=== PATIENT | female | born 1975 | race African-American/Black ===

== ENCOUNTER 2019-07-19 23:11 | Emergency (ER) | payer MEDICAID ==
[~2019-07-19] VITALS: Ht 175.3 cm; Wt 115.0 kg
[2019-07-19] MEDS ORDERED: SODIUM CHLORIDE 0.9% 1,000 ML IV ONE (23:18)
[2019-07-19] MEDS ORDERED: LORAZEPAM 2MG/ML CPJ IV STA (23:18)
[2019-07-19] MEDS ORDERED: LORAZEPAM 2MG/ML CPJ ONE ×2 (23:19→23:27)
[2019-07-19] MEDS ORDERED: NALOXONE HCL 1 MG/ML 2ML VIAL ONE ×3 (23:21→23:31)
[2019-07-19] MEDS ORDERED: NALOXONE HCL 1 MG/ML 2ML VIAL IV ONE ×2 (23:30→23:45)
[2019-07-19] MEDS ORDERED: NALOXONE HCL 0.4 MG/ML 1ML VIAL IV PRN (23:30)
[2019-07-19] MEDS ORDERED: LORAZEPAM 2MG/ML CPJ IV ONE (23:45)
[2019-07-19 23:52] LABS: BASOPHILS % 0.2 % (0.0-2.0); EOSINOPHILS % 0.4 % (0.0-5.0); HEMATOCRIT. 37.1 % (36.0-48.0); HEMOGLOBIN. 11.7 g/dL (12.0-16.0); LYMPHOCYTES % 23.4 % (20.0-50.0); MEAN CORPUSCULAR HEMOGLOBIN 30.9 pg (28.0-32.0); MEAN CORPUSCULAR VOLUME 97.9 fL (81.0-99.0); MEAN PLATELET VOLUME 7.4 fl (7.4-10.4); MONOCYTES % 2.1 % (2.0-8.0); NEUTROPHILS % 73.9 % (40.0-76.0); PLATELET 314 x1000/uL (130-400); RED BLOOD CELL COUNT 3.79 mill/uL (4.2-5.4); RED CELL DISTRIBUTION WIDTH 15.3 % (11.6-14.6)
[2019-07-20 00:53] LABS: CLARITY URINE CLEAR (CLEAR); COLOR URINE YELLOW (YELLOW); KETONES URINE NEGATIVE (NEGATIVE); LEUKOCYTE ESTERASE URINE NEGATIVE (NEGATIVE); NITRITE URINE NEGATIVE (NEGATIVE); OCCULT BLOOD URINE NEGATIVE (NEGATIVE); PH URINE 5.5 (4.5-8.0); PROTEIN URINE TRACE (NEGATIVE); SPECIFIC GRAVITY URINE 1.016 (1.005-1.030); UROBILINOGEN URINE 0.2 E.U./dL (0.2-1.0)
[2019-07-20 01:02] LABS: *AMPHETAMINES SCREEN URINE NEGATIVE (NEGATIVE); *COCAINE SCREEN URINE NEGATIVE (NEGATIVE); METHADONE URINE SCREEN NEGATIVE (NEGATIVE); PHENCYCLIDINE URINE SCREEN NEGATIVE (NEGATIVE)
[2019-07-20 01:03] LABS: *BARBITURATES SCREEN URINE NEGATIVE (NEGATIVE)
[2019-07-20 01:04] LABS: CHLORIDE 112 mEq/L (98-107)
[2019-07-20 01:06] LABS: PROTHROMBIN TIME 10.6 sec (9.6-11.0)
[2019-07-20 01:08] LABS: ETHANOL BLOOD < 10 mg/dL
[2019-07-20 01:13] LABS: CREATINE KINASE 159 IU/L (26-192)
[2019-07-20 01:25] LABS: *BENZODIAZEPINES SCREEN URINE PRESUMTIVE POSITIVE (NEGATIVE); CANNABINOID URINE SCREEN PRESUMTIVE POSITIVE (NEGATIVE); OPIATES URINE SCREEN PRESUMTIVE POSITIVE (NEGATIVE)
[2019-07-20 10:56] VITALS: BP 129/76
== END 2019-07-20 11:26 | disposition home or self-care (01) ==
LOC: ER 23:11
DX: T50.902A Poisoning by unspecified drugs, medicaments and biological substances, intentional self-harm, initial encounter (principal); R06.03 Acute respiratory distress; R00.0 Tachycardia, unspecified; R41.82 Altered mental status, unspecified; Y92.038 Other place in apartment as the place of occurrence of the external cause; G40.909 Epilepsy, unspecified, not intractable, without status epilepticus
CPT/HCPCS: 36415; 70450; 71045; 80053; 80305; 80307; 80320; 80329; 81003; 81025; 82140; 82550; 82962; 83605; 83690; 83880; 84443; 84484; 85025; 85610; 86850; 86900; 86901; 93005; 96374; 96375; 99285; J2060; J2310; J7030; Z7610; G0480

== ENCOUNTER 2022-05-07 22:00 | Emergency (ER) | payer MEDICAID ==
[~2022-05-07] VITALS: Ht 177.8 cm; Wt 96.0 kg
[2022-05-08] MEDS ORDERED: LEVETIRACETAM 500MG PREMIX 100 ML IV ONE
[2022-05-08 00:17] LABS: BASOPHILS % 0.6 % (0.0-2.0); EOSINOPHILS % 0.2 % (0.0-5.0); HEMATOCRIT. 35.6 % (36.0-48.0); HEMOGLOBIN. 11.8 g/dL (12.0-16.0); LYMPHOCYTES % 15.6 % (20.0-50.0); MEAN CORPUSCULAR HEMOGLOBIN 29.2 pg (28.0-32.0); MEAN CORPUSCULAR VOLUME 88.6 fL (81.0-99.0); MEAN PLATELET VOLUME 6.9 fl (7.4-10.4); MONOCYTES % 5.4 % (2.0-8.0); NEUTROPHILS % 78.2 % (40.0-76.0); PLATELET 445 x1000/uL (130-400); RED BLOOD CELL COUNT 4.03 mill/uL (4.2-5.4); RED CELL DISTRIBUTION WIDTH 15.1 % (11.6-14.6)
[2022-05-08 00:41] LABS: CHLORIDE 105 mEq/L (98-107)
[2022-05-08 03:00] VITALS: BP 124/43
[2022-05-08] MEDS ORDERED: KEPP500 MT (03:37)
== END 2022-05-08 05:05 | disposition home or self-care (01) ==
LOC: ER 22:00
DX: S70.02XA Contusion of left hip, initial encounter (principal); R56.9 Unspecified convulsions; X58.XXXA Exposure to other specified factors, initial encounter; Y93.89 Activity, other specified; Y92.89 Other specified places as the place of occurrence of the external cause; Y99.8 Other external cause status
CPT/HCPCS: 36415; 72170; 80053; 85025; 93005; 96365; 96366; 99285; J1953; Z7610